=== PATIENT | male | born 1945 | race Two or more races ===

== ENCOUNTER 2023-07-14 16:28 | Outpatient (REF) | payer MEDICARE, SELFPAY ==
[2023-07-14 17:56] LABS: Vitamin B12 386 pg/mL (200-900)
[2023-07-15 08:00] LABS: Syphilis Screen Nonreactive (Nonreactive)
[2023-07-15 17:33] LABS: Lyme Abs Screen <0.90 index
== END 2023-07-14 16:29 | disposition home or self-care (01) ==
LOC: HO.LAB 16:28
PROVIDERS: Visit Provider Psychiatry & Neurology Neurology
DX: G30.9 Alzheimer's disease, unspecified (principal)
CPT/HCPCS: 36415; 82607; 86617; 86618; 86780